=== PATIENT | male | born 1980 | race Caucasian/White ===

== ENCOUNTER 2016-12-19 12:14 | Emergency (ER) | payer OTHER ==
[~2016-12-19] VITALS: Ht 180.3 cm; Wt 86.0 kg
[~2016-12-19 12:14] MED LIST: NOCURR
[2016-12-19 13:41] LABS: GLUCOSE,POINT OF CARE 81 MG/DL (70-110)
[2016-12-19 14:06] VITALS: BP 131/80
== END 2016-12-19 14:14 | disposition home or self-care (01) ==
LOC: EMS 12:17
DX: L02.415 Cutaneous abscess of right lower limb (principal)
CPT/HCPCS: 82962; 99282